=== PATIENT | female | born 1995 ===

== ENCOUNTER 2021-03-30 10:06 | Emergency (ER) | payer SELFPAY ==
[~2021-03-30] VITALS: Ht 167.6 cm; Wt 68.0 kg
[2021-03-30 11:42] VITALS: BP 107/70
[2021-03-30] MEDS ORDERED: KETOROLAC TROMETH 60MG/2ML VIAL IM ONE (12:15)
[2021-03-30] MEDS ORDERED: IBUP800T26 PO (13:31)
== END 2021-03-30 13:56 | disposition home or self-care (01) ==
LOC: ER 10:06
DX: R07.89 Other chest pain (principal); Z88.8 Allergy status to other drugs, medicaments and biological substances; M54.2 Cervicalgia
CPT/HCPCS: 71045; 72125; 96372; 99284; J1885